=== PATIENT | female | born 1955 | race American Indian/Alaskan Native ===

== ENCOUNTER 2016-07-08 07:12 | Outpatient (CLI) | payer OTHER ==
--- NOTE | 2016-07-08 15:21 | Mammography Report ---
BILATERAL DIGITAL SCREENING MAMMOGRAM with CAD: 07/08/16 07:12:00 CLINICAL: Routine screening. COMPARISON:None available. FINDINGS: The breasts are otherwise fatty with few bilateral scattered fibroglandular densities. A left upper biopsy clip. No mass, architectural distortion or suspicious calcifications. IMPRESSION: No mammographic evidence of malignancy. BI-RADS CATEGORY: 2 -- Benign RECOMMENDATION: Routine mammographic screening in one year. COMMENT: Patient follow-up letters are generated by our [employer] application.
== END 2016-07-08 07:13 | disposition home or self-care (01) ==
LOC: MAMMO 07:12
PROVIDERS: ATTEND General Practice
DX: Z12.31 Encounter for screening mammogram for malignant neoplasm of breast (principal)
CPT/HCPCS: 77067; G0202

== ENCOUNTER 2017-09-09 11:01 | Outpatient (CLI) | payer OTHER ==
--- NOTE | 2017-09-09 13:24 | Mammography Report ---
BILATERAL MAMMOGRAM: FINDINGS: The breasts are almost entirely fat (<25% glandular). No mass, distortion, suspicious calcification, or skin change is seen. There is a biopsy marker in the superior left breast. No significant change when compared to her prior exam in June 2016. CAD was utilized. IMPRESSION: Negative mammogram. There is no mammographic evidence of malignancy. RECOMMENDATION: Follow-up per ACS guidelines. BI-RADS CATEGORY: 1 = Negative ACR BI-RADS MAMMOGRAPHIC CODES: 0 = Needs additional imaging evaluation; 1 = Negative; 2 = Benign; 3 = Probably benign; 4 = Suspicious; 5 = Malignant; 6 = Known biopsy-proven malignancy COMMENT: 1. Dense breast tissue, i.e., adenosis, fibrocystic changes, etc., may obscure an underlying neoplasm. 2. Approximately 10% of cancers are not detected with mammography. 3. A negative mammography report should not delay biopsy if a clinically suspicious mass is present. COMMENT: Patient follow-up letters are generated in [employer].
== END 2017-09-09 11:02 | disposition home or self-care (01) ==
LOC: MAMMO 11:01
PROVIDERS: ATTEND General Practice
DX: Z12.31 Encounter for screening mammogram for malignant neoplasm of breast (principal)
CPT/HCPCS: 77067

== ENCOUNTER 2017-10-05 13:27 | Emergency (ER) | payer OTHER ==
--- NOTE | 2017-10-05 15:16 | Emergency Department Report ---
Chief Complaint: Fall Stated Complaint: FELL OFF LADDER/NECK/HEAD/BACK PAIN Time Seen by Provider: 10/05/17 15:13 - HPI History of Present Illness: 62 year-old female presents the emergency department after she fell backwards off of a stepladder from a few feet in the air at work and hit her head and her back. No loss of consciousness. She has some pain to the back of the head, the right side of the neck, the right shoulder, and the right side of the mid upper back "under my bra." She did not take anything for her symptoms prior to presentation. - ROS Review of Systems: Positive for headache, back pain, neck pain, right shoulder pain Negative for loss of consciousness, vision change, slurred speech, numbness or paresthesias - Exam Vital Signs: Vital Signs 10/05/17 13:36 Temperature 97.9 F Pulse Rate 68 Respiratory 18 Rate Blood Pressure 152/84 O2 Sat by Pulse 98 Oximetry Physical Exam: Patient is in no apparent distress. She has right-sided paraspinal and lateral neck pain but no deformity. There is right thoracic paraspinal tenderness to palpation. She is awake and alert and oriented. MSE screening note: Focused history and physical exam performed. Due to findings the following was ordered: I have ordered a CT scan of the head and cervical spine without contrast. She will have a right rib and chest x-ray, and she will have a right shoulder x-ray. ED Disposition for MSE Condition: Stable Referrals: PRIMARY CARE, [Primary Care Provider] - 3-5 Days
--- NOTE | 2017-10-05 15:55 | Cat Scan Report ---
FINAL REPORT PROCEDURE: CT HEAD/BRAIN WO CON TECHNIQUE: Computerized tomography of the head was performed without contrast material. HISTORY: headache, fall COMPARISON: No prior studies are available for comparison. FINDINGS: Brain: Brain density appears normal. No evidence of intracranial hemorrhage. No parenchymal hemorrhage, mass lesions or mass effect are seen. No abnormal extraxial fluid collects or masses are seen. Ventricles: Ventricles are normal size and are midline. Bone Windows: No evidence of skull fracture. Paranasal sinuses: Visualized portions are clear. Mastoid air cells: Visualized portions are clear. IMPRESSION: Negative examination
--- NOTE | 2017-10-05 16:00 | Cat Scan Report ---
FINAL REPORT PROCEDURE: CT CERVICAL SPINE WO CON TECHNIQUE: Computerized tomography of the cervical spine was performed from the skull base to T1 without contrast material. HISTORY: neck pain, fall COMPARISON: No prior studies are available for comparison. FINDINGS: No fracture or subluxation is visualized. The prevertebral soft tissues appear normal. Posterior elements are intact. Mild facet arthritis is present bilaterally. Disc space narrowing and osteophyte formation visualized at C3-4 through C7-T1 disc spaces, largest anteriorly at C4-5, C5-6 and C6-7. Posterior osteophytic spurring also visualized at C4-5 and C6-C7. Mild diffuse posterior disc bulge is present at C3-4 obscuring a portion of the anterior epidural space without definite cord compression or spinal stenosis. There is a larger diffuse posterior disc bulge at C4-C5 obscuring the anterior epidural space and resting on the anterior surface of the cord without definite cord compression. The posterior osteophytic spur and a diffuse disc bulge at C6-C7 also obscures a portion of the anterior epidural space without definite cord compression. IMPRESSION: No fracture or subluxation is visualized. Degenerative disc disease is present as described. Please see above comments..
[2017-10-05] MEDS ORDERED: TYLENOL #3 PO ONE (16:02)
--- NOTE | 2017-10-05 16:35 | XRay Report ---
FINAL REPORT PROCEDURE: XR SHOULDER 2+V RT TECHNIQUE: Right shoulder radiographs including AP views in internal and external rotation and abduction. CPT 07915 HISTORY: right shoulder pain. Fell from ladder. COMPARISON: No prior studies are available for comparison. FINDINGS: No fractures or dislocation are visualized. Moderate osteoarthritic change seen in the AC joint. Glenohumeral joint appears well preserved. No abnormal soft tissue calcifications are identified. IMPRESSION: No evidence of fracture or dislocation. Moderate osteoarthritic changes are visualized in the AC joint.
--- NOTE | 2017-10-05 16:42 | XRay Report ---
FINAL REPORT PROCEDURE: XR RIBS UNI W PA CHEST 3+V RT TECHNIQUE: RIGHT rib radiographs, 3 views of the ribs, including PA chest. HISTORY: right rib / back pain COMPARISON: No prior studies are available for comparison. FINDINGS: No displaced rib fractures are identified. Degenerative changes are incidentally noted in the visualized thoracic and lumbar spine. The heart is mildly enlarged. The pulmonary vasculature is not distended. Thin linear band of scarring or atelectasis seen in the lower 3rd of the left lung laterally. On image 1 series 1 there is a low-density oval nodule superior to the right clavicle measuring 12 millimeters x 6.5 millimeters. Lungs otherwise are clear. No acute infiltrates masses effusions or pneumothorax are visualized. IMPRESSION: No evidence of acute displaced rib fracture. Mild cardiomegaly. Indeterminate low-density nodule upper 3rd right lung as described. Both benign and malignant etiology could present this manner. Consider short-term follow-up, 3-4 months to ensure stability versus CT scan at the present time for further evaluation.
--- NOTE | 2017-10-05 17:27 | Emergency Department Report ---
ED Fall HPI - General Chief Complaint: Fall Stated Complaint: FELL OFF LADDER/NECK/HEAD/BACK PAIN Time Seen by Provider: 10/05/17 15:13 Source: patient Mode of arrival: Ambulatory - History of Present Illness Initial Comments: This is a 62-year-old female nontoxic, well nourished in appearance, no acute signs of distress presents to the ED with c/o of headache, neck pain, right shoulder pain, and right rib pain status post fall that occurred this afternoon. Patient stated she was in a labor about 3 feet and had a fall at work. Patient denies any loss of consciousness. Patient denies any stiff neck. Patient denies thunderclap headache. Patient describes headache as a gradual onset that comes and goes diffusely with level of 8/10. Denies any fever , chills, nausea, vomiting, abdominal pain, chest pain, short of breath, numbness, tingling, back pain. Patient denies any allergies. PMH includes HTN. MD Complaint: fall -: This afternoon Fall From: from height (distance) (3) Place Fall Occurred: work Loss of Consciousness: none Prolonged Down Time?: no Symptoms Prior to Fall: none Location: head Severity: mild Severity scale (0 -10): 8 Quality: aching Associated Symptoms: headache, neck pain. denies: numbness, weakness, chest paint, shortness of breath, abdominal pain, hematuria, unable to walk, lightheaded, vertigo, confusion - Related Data Previous Rx's Medication Instructions Recorded Last Taken Type Cyclobenzaprine [Flexeril] 10 mg PO BID PRN #10 tablet 10/05/17 Unknown Rx Ibuprofen [Motrin] 600 mg PO Q8H PRN #30 tablet 10/05/17 Unknown Rx Allergies Allergy/AdvReac Type Severity Reaction Status Date / Time No Known Allergies Allergy Unverified 07/08/16 07:12 ED Review of Systems ROS: Stated complaint: FELL OFF LADDER/NECK/HEAD/BACK PAIN Other details as noted in HPI Constitutional: denies: chills, fever Eyes: denies: eye pain, eye discharge, vision change ENT: denies: ear pain, throat pain Respiratory: denies: cough, shortness of breath, wheezing Cardiovascular: denies: chest pain, palpitations Endocrine: no symptoms reported Gastrointestinal: denies: abdominal pain, nausea, diarrhea Genitourinary: denies: urgency, dysuria, discharge Musculoskeletal: back pain, arthralgia. denies: joint swelling Skin: denies: rash, lesions Neurological: headache. denies: weakness, paresthesias Psychiatric: denies: anxiety, depression Hematological/Lymphatic: denies: easy bleeding, easy bruising ED Past Medical Hx - Past Medical History Hx Hypertension: Yes - Surgical History Past Surgical History?: No - Social History Smoking Status: Never Smoker Substance Use Type: None - Medications Home Medications: Home Medications Medication Instructions Recorded Confirmed Last Taken Type Cyclobenzaprine [Flexeril] 10 mg PO BID PRN #10 tablet 10/05/17 Unknown Rx Ibuprofen [Motrin] 600 mg PO Q8H PRN #30 tablet 10/05/17 Unknown Rx ED Physical Exam - General Limitations: No Limitations General appearance: alert, in no apparent distress - Head Head exam: Present: atraumatic, normocephalic - Eye Eye exam: Present: normal appearance Pupils: Present: normal accommodation - ENT ENT exam: Present: normal exam, mucous membranes moist - Neck Neck exam: Present: normal inspection, full ROM - Respiratory Respiratory exam: Present: normal lung sounds bilaterally, chest wall tenderness (right lateral rib). Absent: respiratory distress, wheezes, rhonchi , stridor, accessory muscle use, decreased breath sounds, prolonged expiratory - Cardiovascular Cardiovascular Exam: Present: regular rate, normal rhythm, normal heart sounds. Absent: bradycardia, tachycardia, irregular rhythm, systolic murmur, diastolic murmur, rubs, gallop - GI/Abdominal GI/Abdominal exam: Present: soft, normal bowel sounds - Rectal Rectal exam: Present: deferred - Extremities Exam Extremities exam: Present: normal inspection, full ROM, tenderness, normal capillary refill. Absent: joint swelling - Expanded Upper Extremity Exam Right General: Present: normal inspection Shoulder Exam: Present: normal inspection, full ROM, tenderness. Absent: swelling, abrasion, laceration, ecchymosis, deformity, crepidus, dislocation, erythema, tenderness over AC joint Upper Arm exam: Present: normal inspection, full ROM Elbow exam: Present: normal inspection, full ROM Forearm Wrist exam: Present: normal inspection, full ROM Hand Wrist exam: Present: normal inspection, full ROM Neuro motor exam: Present: wrist extension intact, thumb opposition intact, thumb IP flexion intact, thumb adduction intact, fingers 2-5 abduction intact Neurosensory exam: Present: 2-point discrimination, radial nerve intact, ulnar nerve intact, median nerve intact Vascular: Present: vascular compromise, normal capillary refill, radial pulse, brachial pulse, ulnar pulse - Back Exam Back exam: Present: normal inspection, full ROM, paraspinal tenderness ( cervical region). Absent: tenderness, CVA tenderness (R), CVA tenderness (L), muscle spasm, vertebral tenderness, rash noted - Expanded Back Exam Expanded Back exam: Absent: saddle anesthesia Back exam: Negative Straight Leg Raising: Left, Right - Neurological Exam Neurological exam: Present: alert, oriented X3, CN II-XII intact, normal gait - Expanded Neurological Exam Expanded Patient oriented to: Present: person, place, time Cranial nerves: EOM's Intact: Normal, Gag Reflex: Normal, Facial Sensation: Normal Cerebellar function: Finger to Nose: Normal Upper motor neuron: Pronator Drift: Normal, Sensory Extinction: Normal Sensory exam: Upper Extremity Light Touch: Normal, Upper Extremity Pin Prick: Normal, Upper Extremity Temperature: Normal, UE 2 Point Discrimination: Normal, Lower Extremity Light Touch: Normal, Lower Extremity Pin Prick: Normal, Lower Extremity Temperature: Normal, LE 2 Point Discrimination: Normal Motor strength exam: RUE: 5, LUE: 5, RLE: 5, LLE: 5 Best Eye Response ([place]): (4) open spontaneously Best Motor Response ([place]): (6) obeys commands Best Verbal Response ([place]): (5) oriented [place] Total: 15 - Psychiatric Psychiatric exam: Present: normal affect, normal mood - Skin Skin exam: Present: warm, dry, intact, normal color. Absent: rash ED Course Vital Signs 10/05/17 13:36 Temperature 97.9 F Pulse Rate 68 Respiratory 18 Rate Blood Pressure 152/84 O2 Sat by Pulse 98 Oximetry - Reevaluation(s) Reevaluation #1: 10/05/17 17:38 Patient is speaking in full sentences with no signs of distress noted. - Consultations Consultation #1: 10/05/17 17:39 Patient has been consulted with Dr. Burdick about patient history, physical exam, and CT/Xray and examined and screened patient and agrees to ED plan of care and discharge plan of care. ED Medical Decision Making - Medical Decision Making ED course; this is a 62-year-old female that presents with contusion to right rib, head, right shoulder strain, and cervical neck muscle strain 1- patient was examined by me patient is stable. Multiple CT and xrays obtained and dictated by the radiologist. Patient is notified of the radiology report with no questions noted by the patient. 2- patient received Tylenol with Codeine in the ED with persistent symptoms are improving and are subsiding. Patient family is going to drive her home as she stated after discharge. 3- patient received ibuprofen and Flexeril at discharge and was instructed not to operate any machinery while taking Flexeril due to sebaceous drowsiness. 4- patient was instructed to Follow-up with your primary care/spine doctor in 3- 5 days or if symptoms worsen such as bladder or bowel stability, chest pain, short of breath, numbness or tingling sensation in extremities, headache, dizziness, visual changes, nausea vomiting, or abdominal pain, return back to emergency room as was possible. 5- At time time of discharge, the patient does not seem toxic or ill in appearance. No acute signs of distress noted. Patient agrees to discharge treatment plan of care. No further questions noted by the patient. Critical care attestation.: If time is entered above; I have spent that time in minutes in the direct care of this critically ill patient, excluding procedure time. ED Disposition Clinical Impression: Headache Qualifiers: Headache type: unspecified Headache chronicity pattern: acute headache Intractability: not intractable Qualified Code(s): R51 - Headache Cervical muscle strain Qualifiers: Encounter type: initial encounter Qualified Code(s): S16.1XXA - Strain of muscle, fascia and tendon at neck level, initial encounter Fall Qualifiers: Encounter type: initial encounter Qualified Code(s): W19.XXXA - Unspecified fall, initial encounter Contusion of rib on right side Qualifiers: Encounter type: initial encounter Qualified Code(s): S20.211A - Contusion of right front wall of thorax, initial encounter Right shoulder strain Qualifiers: Encounter type: initial encounter Qualified Code(s): S46.911A - Strain of unspecified muscle, fascia and tendon at shoulder and upper arm level, right arm , initial encounter Disposition: - TO HOME OR SELFCARE Is pt being admited?: No Does the pt Need Aspirin: No Condition: Stable Instructions: Muscle Strain (ED), Cyclobenzaprine (By mouth), Ibuprofen (By mouth) Additional Instructions: Follow-up with your primary care doctor in 3-5 days or if symptoms worsen such as bladder or bowel stability, chest pain, short of breath, numbness or tingling sensation in extremities, headache, dizziness, visual changes, nausea vomiting, or abdominal pain, return back to emergency room as was possible. Take ibuprofen and Flexeril as prescribed. Do not operate heavy machinery while taking Flexeril due to sedation Prescriptions: Cyclobenzaprine [Flexeril] 10 mg PO BID PRN #10 tablet PRN Reason: Muscle Spasm Ibuprofen [Motrin] 600 mg PO Q8H PRN #30 tablet PRN Reason: Pain Referrals: PRIMARY CAREMD [Primary Care Provider] - 3-5 Days CARLYLE CASANOVA MD [Staff Physician] - 3-5 Days [facility] [place][Note 3] [Outside] - 3-5 Days [facility] [Outside] - 3-5 Days JOELLE THORPE MD [Staff Physician] - 3-5 Days Forms: Work/School Release Form(ED)
[2017-10-05 17:50] VITALS: BP 166/78
== END 2017-10-05 18:11 | disposition home or self-care (01) ==
LOC: ED 13:27
DX: S16.1XXA Strain of muscle, fascia and tendon at neck level, initial encounter (principal); S46.911A Strain of unspecified muscle, fascia and tendon at shoulder and upper arm level, right arm, initial encounter; S20.211A Contusion of right front wall of thorax, initial encounter; R51 Headache; I10 Essential (primary) hypertension; W11.XXXA Fall on and from ladder, initial encounter; Y93.89 Activity, other specified; Y99.0 Civilian activity done for income or pay; Y92.89 Other specified places as the place of occurrence of the external cause
CPT/HCPCS: 70450; 72125

== ENCOUNTER 2019-02-24 08:38 | Outpatient (CLI) | payer OTHER ==
--- NOTE | 2019-02-24 16:51 | Mammography Report ---
DIGITAL SCREENING MAMMOGRAM WITH CAD, 02/24/2019 INDICATION: Routine screening mammography. TECHNIQUE: Digital bilateral 2D mammography was obtained in the craniocaudal and mediolateral obliq ue projections. This examination was interpreted with the benefit of Computer-Aided Detection analysi s. COMPARISON: 09/09/2017 FINDINGS: Breast Density: There are scattered areas of fibroglandular density. There is no evidence of dominant mass, suspicious calcifications or architectural distortion in eithe r breast. A left upper biopsy clip. A few right retroareolar benign calcifications. IMPRESSION: No mammographic evidence of malignancy. Follow up recommendation: Routine yearly BI-RADS Category 2: Benign. A "normal" or negative report should not discourage follow up or biopsy of a clinically significant f inding. A written summary of these findings will be mailed to the patient. The patient will be entered into a mammography reporting system which will generate a reminder letter for the patient's next appointmen t at the appropriate interval. The [employer] recommends yearly mammograms starting at age 40 and continuing as l clarence as a woman is in good health. Breast MRI is recommended for women with an approximate 20-25% or greater lifetime risk of breast cancer, including women with a strong family history of breast or ova vivien cancer or who have been treated for Hodgkin's disease. Signer Name: Navarro Dias MD Signed: 02/24/2019 4:47 PM Workstation Name: [id number]
== END 2019-02-24 08:39 | disposition home or self-care (01) ==
LOC: MAMMO 08:38
PROVIDERS: ATTEND General Practice
DX: Z12.31 Encounter for screening mammogram for malignant neoplasm of breast (principal); I10 Essential (primary) hypertension
CPT/HCPCS: 77067